=== PATIENT | female | born 1995 | race Caucasian/White ===

== ENCOUNTER → 2017-07-18 | Outpatient (CLI) | payer MEDICAID ==
[~2017-07-18] MED LIST: ACET-1718 PO; IBUP800T37 PO
--- NOTE | 2017-07-18 09:21 | RADIOLOGY IMAGING REPORT ---
FACILITY: [facility] PATIENT NAME: Kenzie Alcantar : 1995 MR: [id number] V: [id number] EXAM DATE: ORDERING PHYSICIAN: LORIN ESPINOSA TECHNOLOGIST: Location: [facility] [place] Patient: Kenzie Alcantar : 1995 Visit/Account:[id number] Date of Sevice: 07/18/2017 GALLBLADDER HISTORY: 13 weeks with right upper quadrant pain on and off for three years COMPARISON: None. FINDINGS: Gallbladder: Unremarkable; no stones or sludge. Liver: Negative. Common duct: Normal, 2.5 mm diameter. Pancreas: Partially obscured by bowel, visualized aspects unremarkable. Right kidney: Right kidney measures 11.8 cm in length with no evidence of hydronephrosis Upper abdominal aorta and IVC: Patent. Ascites: None visualized. IMPRESSION: Unremarkable right upper quadrant ultrasound Report Dictated By: Elysia Morrison MD at 07/18/2017 9:14 AM Report E-Signed By: Elysia Morrison MD at 07/18/2017 9:16 AM WSN:[email or web address]
== END ==
LOC: US 07:18
PROVIDERS: ATTEND Obstetrics & Gynecology
DX: R10.11 Right upper quadrant pain (principal); Z3A.13 13 weeks gestation of pregnancy
CPT/HCPCS: 76705